=== PATIENT | male | born 1980 | race Caucasian/White ===

== ENCOUNTER 2019-11-10 07:40 | Outpatient (CLI) | payer OTHER ==
[~2019-11-10] VITALS: Ht 180.3 cm; Wt 117.6 kg
[2019-11-10] MEDS ORDERED: COZAAR 25MG25 MG/TAB PO (08:00)
[2019-11-10] MEDS ORDERED: ASPIRIN E.C. 8181 MG PO (08:01)
[2019-11-10] MEDS ORDERED: ROBAXIN 75750 MG/TAB PO (08:02)
[2019-11-10] MEDS ORDERED: LIPITOR 40MG TA40 MG PO (08:02)
[2019-11-10] MEDS ORDERED: ZYRTEC 10MG10 MG PO (08:03)
[2019-11-10 08:07] VITALS: BP 137/84; PULSE 71; TEMP 98.3
[2019-11-10 08:30] LABS: HEMOGLOBIN 14.7 g/dl (13.5-18.0); MEAN CELL VOLUME 87 fl (80.0-100.0); MEAN CORPUSCULAR HEMOGLOBIN 30 pg (27.0-31.0); MEAN CORPUSCULAR HGB CONC 34 g/dl (33.0-37.0); PLATELET COUNT 220 K/mm3 (130-400); RED BLOOD COUNT 4.94 M/mm3 (4.20-5.60)
[2019-11-10 09:16] LABS: PROTHROMBIN TIME 11.3 SECONDS (9.7-12.8)
[2019-11-10 10:30] VITALS: BP 131/78; PULSE 69
--- NOTE | 2019-11-10 10:45 | NUR ---
I REVIEWED DC AND FU INSTRUCTIONS WITH PT WHO DENIED ANY QUESTIONS AT TIME OF DEPARTURE. INCISION SITE LOOKS GOOD, IT IS DRESSED WITH STERILE GAUZE WHICH IS CLEAN AND DRY. PT ADVISED HE COULD SHOWER TOMORROW, BUT TO PROTECT INCISION FROM DIRECT SPRAY, TO KEEP SITE CLEAN AND DRY, COVERED WITH STERILE DRESSING, AND TO MONITOR FOR ANY SIGNS OF INFECTION. PT DENIED QUESTIONS. PER INSTRUCTIONS WAS TO F/U WITH DR. PARK IN 2 WEEKS, BUT TO CALL SOONER IF ANY QUESTIONS. PT IS AMBULATORY TO EXIT WITH STEADY GAIT.
== END 2019-11-10 10:45 | disposition home or self-care (01) ==
LOC: COL.CAR 07:40
PROVIDERS: Internal Medicine Cardiovascular Disease
DX: G45.9 Transient cerebral ischemic attack, unspecified (principal); E78.5 Hyperlipidemia, unspecified; I10 Essential (primary) hypertension; Z11.59 Encounter for screening for other viral diseases